=== PATIENT | female | born 1990 | race Caucasian/White ===

== ENCOUNTER 2023-12-01 15:30 | Outpatient (RCR) | payer BC, SELFPAY ==
--- NOTE | 2023-09-16 16:56 | OPREHPOC ---
Outpatient Therapy Plan of Care This is a Multidisciplinary Plan of Care that may contain components documented by all disciplines (PT, OT, and ST.) PT Problem 1 PT Problem #1 Knowledge Deficit PT Goal 1 Goal Pt to be IND with issued HEP Target Visit 8 PT Problem 2 PT Problem #2 Pain PT Goal 1 Goal Pt to report pain no greater 3/10 in the last week . Target Visit 8 PT Goal 2 Goal Pt to report 75% improvement in overall symptoms. Target Visit 8 PT Problem 3 PT Problem #3 Impaired Functional Mobil PT Goal 1 Goal Pt to demonstrate a functional lift and carry with 20lb from ground level Target Visit 8 PT Goal 2 Goal Pt to demonstrate neutral hip alignment at follow up Target Visit 8
--- NOTE | 2023-09-16 16:56 | PTOPEVAL1 ---
Assessment and note entered by Sofia Gordon, PT, DPT Evaluation Information Assessment Status Evaluation Diagnosis L hip pain Onset 2 months Subjective Information Pt states she thinks she is having sciatic nerve pain, reports L hip pain that radiates intermittently down the lateral side of her thigh. She reports pain when putting her shoes on and rolling over in bed. She will randomly get sharps in her hip but cannot find a pattern to these. Pt has a desk job, she works from home, sits on the couch to work. Reported Pain Level Pain Score 0: Self Report Assessment PT Clinical Summary Halley presents to therapy today for her initial evaluation with a diagnosis of L hip pain. Today she demonstrates a minor decrease in asha hip strength, piriformis tenderness, and pelvic asymmetries. She reports pain with supine rolling and with L hip ext rot with flexion, making it difficult to tie her shoes. Skilled therapy services are indicated to address the deficits noted above, to mange pain, to improve hip stability, and to return to PLOF. Plan of Care Interventions Electrical Stimulation,Gait Training,Hot Pack/Cold Pack,Manual Therapy,Neuro Re-education,Patient/ Caregiver Educati,Therapeutic Activities, Therapeutic Exercise PT Services Indicated Yes Treatment Frequency and 1x/wk for 6 visits Duration These treatments will address the objective and functional deficits as defined above. The patient will be advanced safely and appropriately in order for the patient to progress towards his/her prior level of function. Additional exercises will be introduced and as well as a comprehensive home exercise program upon discharge, if needed, ?to ensure carryover of functional gains achieved in the clinic. This treatment plan has been reviewed and agreement upon by the patient.
--- NOTE | 2023-09-21 11:29 | OTOPEVAL1 ---
Assessment and note entered by Jaguar Pizarro, OTNavid/Rashid, CHT Evaluation Information Assessment Status Evaluation Diagnosis (R) wrist pain Subjective Information Patient is right handed. She reports feeling onset of pain ~3 months ago. Reports pain and difficulties with gripping and lifting. 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 Tried to wear a wrist brace but this increased her pain. Reports no paresthesia in the hand. Reported Pain Level Pain Score 1: Self Report Additional Pain Score Comments Pain can become sharp/shooting when the wrist is stressed with resistance. Assessment OT Clinical Summary Patient referred to OT with right hand/wrist pain. Signs and symptoms are consistent with tenosynovitis of the 1st dorsal compartment. All nerve tension tests were negative. Skilled OT indicated to facilitate reduced pain and improved functional strength of the right hand/wrist. Plan of Care Interventions Therapeutic Exercise,Manual Therapy,Therapeutic Activities,Hot Pack/Cold Pack,Ultrasound,Paraffin OT Services Indicated Yes Treatment Frequency and 1x/week for 5 visits Duration These treatments will address the objective and functional deficits as defined above. The patient will be advanced safely and appropriately in order for the patient to progress towards his/her prior level of function. Additional exercises will be introduced and as well as a comprehensive home exercise program upon discharge, if needed, ?to ensure carryover of functional gains achieved in the clinic. This treatment plan has been reviewed and agreement upon by the patient.
--- NOTE | 2023-09-21 11:30 | OPREHPOC ---
Outpatient Therapy Plan of Care This is a Multidisciplinary Plan of Care that may contain components documented by all disciplines (PT, OT, and ST.) PT Problem 1 PT Problem #1 Knowledge Deficit PT Goal 1 Goal Pt to be IND with issued HEP Target Visit 8 PT Problem 2 PT Problem #2 Pain PT Goal 1 Goal Pt to report pain no greater 3/10 in the last week . Target Visit 8 PT Goal 2 Goal Pt to report 75% improvement in overall symptoms. Target Visit 8 PT Problem 3 PT Problem #3 Impaired Functional Mobil PT Goal 1 Goal Pt to demonstrate a functional lift and carry with 20lb from ground level Target Visit 8 PT Goal 2 Goal Pt to demonstrate neutral hip alignment at follow up Target Visit 8 OT Problem 1 OT Problem #1 Knowledge Deficit OT Goal 1 Goal 1. Patient to be independent with instructed materials. Target Visit 6 OT Problem 2 OT Problem #2 Pain OT Goal 1 Goal 1. Patient to report no pain in the hand/wrist during ADLs. Target Visit 6 OT Problem 3 OT Problem #3 Impaired Flexibility OT Goal 1 Goal 1. Patient to be able to complete passive wrist flexion and extension stretching without pain. Target Visit 6 OT Problem 4 OT Problem #4 Impaired Strength OT Goal 1 Goal 1. Patient to be able to complete wrist strengthening with 2 lb. free weight in all planes x20 without pain.
--- NOTE | 2023-10-08 11:22 | PCPTNOTE ---
Patient called & cancelled scheduled appointment this date due to being sick.
--- NOTE | 2023-11-05 15:21 | OTOPPROG ---
Assessment and note entered by Jaguar Pizarro, OTR/Rashid, CHT OT Progress Update 11/05/23 Diagnosis (R) wrist pain Subjective Information Patient reports progress since the start of care. Reports pain has reduced in intensity and in frequency. Reports intermittent pain when the thumb is used with resistance, such as when she is pinching something and plugging it into an outlet , turns the steering wheel. Reports no paresthesia in the hand. Reports no longer having aching pain at night and no longer having pain when pushing herself up in bed. Assessment OT Clinical Summary Patient referred to OT with right hand/wrist pain. She is progressing with reduced pain and reduced frequency of the pain. She is no longer reporting pain traveling up the wrist and is now able to bear weight through an extended wrist, such as when she pushes herself out of bed. She continues to have intermittent pain with thumb use. She reports these as sudden jolts of pain. All nerve tension tests are negative. Continued skilled OT indicated to continue to treat tendonitis of the thumb. Treatments to include continued use of modalities such as paraffin and US as well as therapeutic exercise and progressive strengthening. Plan of Care Interventions Therapeutic Exercise,Manual Therapy,Therapeutic Activities,Hot Pack/Cold Pack,Ultrasound,Paraffin OT Services Indicated Yes Treatment Frequency and 1x/week for 5 visits Duration These treatments will address the objective and functional deficits as defined above. The patient will be advanced safely and appropriately in order for the patient to progress towards his/her prior level of function. Additional exercises will be introduced and as well as a comprehensive home exercise program upon discharge, if needed, ?to ensure carryover of functional gains achieved in the clinic. This treatment plan has been reviewed and agreement upon by the patient.
--- NOTE | 2023-11-05 15:21 | OPREHPOC ---
Outpatient Therapy Plan of Care This is a Multidisciplinary Plan of Care that may contain components documented by all disciplines (PT, OT, and ST.) PT Problem 1 PT Problem #1 Knowledge Deficit PT Goal 1 Goal Pt to be IND with issued HEP Target Visit 8 PT Problem 2 PT Problem #2 Pain PT Goal 1 Goal Pt to report pain no greater 3/10 in the last week . Target Visit 8 PT Goal 2 Goal Pt to report 75% improvement in overall symptoms. Target Visit 8 PT Problem 3 PT Problem #3 Impaired Functional Mobil PT Goal 1 Goal Pt to demonstrate a functional lift and carry with 20lb from ground level Target Visit 8 PT Goal 2 Goal Pt to demonstrate neutral hip alignment at follow up Target Visit 8 OT Problem 1 OT Problem #1 Knowledge Deficit OT Goal 1 Goal 1. Patient to be independent with instructed materials. ---OT POC UPDATE 11/05/23--- 1. Met, continue as HEP is progressed Target Visit 11 OT Problem 2 OT Problem #2 Pain OT Goal 1 Goal 1. Patient to report no pain in the hand/wrist during ADLs. ---OT POC UPDATE 11/05/23--- 1. Inconsistently met, she continues to have pain and pain is decreasing, continue goal Target Visit 11 OT Problem 3 OT Problem #3 Impaired Flexibility OT Goal 1 Goal 1. Patient to be able to complete passive wrist flexion and extension stretching without pain. ---OT POC UPDATE 11/05/23--- 1. Met, D/C flexibility goal Target Visit 6 OT Problem 4 OT Problem #4 Impaired Strength OT Goal 1 Goal 1. Patient to be able to complete wrist strengthening with 2 lb. free weight in all planes x20 without pain. ---OT POC UPDATE 11/05/23--- 1. Met New Strength Goal 1.
--- NOTE | 2023-11-09 17:02 | OPREHPOC ---
Outpatient Therapy Plan of Care This is a Multidisciplinary Plan of Care that may contain components documented by all disciplines (PT, OT, and ST.) PT Problem 1 PT Problem #1 Knowledge Deficit PT Goal 1 Goal Pt to be IND with issued HEP Target Visit 8 Progress Met PT Problem 2 PT Problem #2 Pain PT Goal 1 Goal Pt to report pain no greater 3/10 in the last week . Target Visit 8 Progress Partially Met Comment Still incurring glute pain with hip rotation PT Goal 2 Goal Pt to report 75% improvement in overall symptoms. Target Visit 12 Progress Partially Met PT Problem 3 PT Problem #3 Impaired Functional Mobil PT Goal 1 Goal Pt to demonstrate a functional lift and carry with 20lb from ground level Target Visit 8 Progress Met PT Goal 2 Goal Pt to demonstrate neutral hip alignment at follow up Target Visit 8 Progress Met PT Problem 4 PT Problem #4 Impaired Functional Mobil PT Goal 1 Goal Patient will demonstrate ability to cross over left leg to right without pain for donning and doffing of shoes OT Problem 1 OT Problem #1 Knowledge Deficit OT Goal 1 Goal 1. Patient to be independent with instructed materials. ---OT POC UPDATE 11/05/23--- 1. Met, continue as HEP is progressed Target Visit 11 OT Problem 2 OT Problem #2 Pain OT Goal 1 Goal 1. Patient to report no pain in the hand/wrist during ADLs. ---OT POC UPDATE 11/05/23--- 1. Inconsistently met, she continues to have pain and pain is decreasing, continue goal Target Visit 11 OT Problem 3 OT Problem #3 Impaired Flexibility OT Goal 1 Goal 1. Patient to be able to complete passive wrist flexion and extension stretching without pain.
--- NOTE | 2023-11-09 17:02 | PTOPPROG ---
Assessment and note entered by Rm Barone, PT Evaluation Information Assessment Status Progress Diagnosis L hip pain Onset 2 months Subjective Information Pt states she thinks she is having sciatic nerve pain, reports L hip pain that radiates intermittently down the lateral side of her thigh. She reports pain when putting her shoes on and rolling over in bed. She will randomly get sharps in her hip but cannot find a pattern to these. Pt has a desk job, she works from home, sits on the couch to work. Assessment PT Clinical Summary Patient has seen objective progress in hip ROM and strength. Continues to show some lateral weakness and is having pain with functional crossing of leg which is consistent with acetabular impingement. Will continue to benefit from skilled therapy to address these deficits moving forward for return to functional mobility and ADL performance. Plan of Care Interventions Electrical Stimulation,Gait Training,Hot Pack/Cold Pack,Manual Therapy,Neuro Re-education,Patient/ Caregiver Education,Therapeutic Activities, Therapeutic Exercise PT Services Indicated Yes Treatment Frequency and 1x/wk for 4 visits Duration These treatments will address the objective and functional deficits as defined above. The patient will be advanced safely and appropriately in order for the patient to progress towards his/her prior level of function. Additional exercises will be introduced and as well as a comprehensive home exercise program upon discharge, if needed, ?to ensure carryover of functional gains achieved in the clinic. This treatment plan has been reviewed and agreement upon by the patient.
== END 2023-12-15 14:54 | disposition still patient (30) ==
LOC: ANHGOSHPT 15:30
PROVIDERS: PCP Internal Medicine; Visit Provider Clinical Nurse Specialist
DX: M79.641 Pain in right hand (principal); M25.552 Pain in left hip
CPT/HCPCS: 97018; 97035; 97110; 97140; 97161; 97166; 97530

== ENCOUNTER 2023-12-16 10:44 | Outpatient (RCR) | payer BC, SELFPAY ==
--- NOTE | 2023-12-16 11:29 | OTOPDC ---
Assessment and note entered by Jaguar Pizarro, OTR/L, CHT OT Discharge Notification 12/16/23 Assessment Status Discharge Diagnosis (R) wrist pain Subjective Information Patient reports making excellent progress with her wrist. She reports no longer feeling pain in the wrist and hasn't felt pain in 2+ weeks. She reports no longer experiencing wrist pain with use. Reporting no functional limitations at this time Reported Pain Level Pain Score 0: Self Report Assessment OT Clinical Summary Patient has made excellent progress with OT. She presents today reporting no longer experiencing pain and reporting no functional limitations. Strength is WNL now. No further skilled OT indicated at this time. Plan of Care OT Services Indicated No
--- NOTE | 2023-12-16 17:00 | PTOPDC ---
Assessment and note entered by Rm Barone, PT Evaluation Information Assessment Status Discharge Diagnosis Left Hip pain Onset August 2023 Subjective Information Reports that overall she is doing better. Reports that majority of her issues remain in occasional pain and difficulty crossing her leg, but that has improved with stretching. She reports that she feels comfortable with HEP to continue to address these deficits. Reported Pain Level Pain Score 0: Self Report Pain Score 0: Self Report Assessment PT Clinical Summary Patient has met all goals a this time for therapy. Suitable for HEP ad demonstrates compliance at this time.
== END 2023-12-17 12:29 | disposition home or self-care (01) ==
LOC: ANHPT 10:44
PROVIDERS: PCP Internal Medicine; Visit Provider Clinical Nurse Specialist
DX: M79.641 Pain in right hand (principal); M25.552 Pain in left hip
CPT/HCPCS: 97110; 97530

== ENCOUNTER 2024-05-24 13:48 | Outpatient (CLI) | payer BC, SELFPAY ==
[2024-05-24 19:41] LABS: Hematocrit 47.2 % (37.0-47.0); Hemoglobin 15.7 g/dL (12.0-15.0); Mean Corpuscular HGB Conc 33.3 g/dl (32-36); Mean Corpuscular Hemoglobin 29.8 pg (26-34); Mean Corpuscular Volume 89.6 fl (80-100); Platelet Count Result 368 k/mm3 (150-375); Red Blood Count 5.27 M/mm3 (4.2-5.4); Red Cell Distribution Width 13.2 % (11.5-14.5); White Blood Count 9.9 K/mm3 (4.5-10.0)
[2024-05-24 19:55] LABS: Alanine Aminotransferase 49 U/L (6-35); Alkaline Phosphatase 82 U/L (38-126); Anion Gap 11 mmol/L (4-12); Aspartate Amino Transferase 47 U/L (14-36); Bilirubin,Total 0.7 mg/dL (0.2-1.3); Blood Urea Nitrogen 14 mg/dL (7-17); Calcium 10.1 mg/dL (8.4-10.2); Carbon Dioxide 21 mmol/L (22-30); Chloride 106 mmol/L (98-107); Estimated Glomerular Filt Rate > 60; Glucose 77 mg/dL (65-110); Potassium 4.6 mmol/L (3.4-5.0); Sodium 138 mmol/L (137-145)
[2024-05-24 20:10] LABS: Free T4 Free Thyroxine 1.05 ng/mL (0.78-2.19); Vitamin D 25 Hydroxy 34.6 ng/mL
[2024-05-24 21:36] LABS: Hemoglobin A1C 5.4 % (<5.7)
== END 2024-05-24 13:49 | disposition home or self-care (01) ==
LOC: ANHGOSHLAB 13:51
PROVIDERS: PCP Internal Medicine; Visit Provider Nurse Practitioner
DX: E55.9 Vitamin D deficiency, unspecified (principal); D35.2 Benign neoplasm of pituitary gland; E22.1 Hyperprolactinemia; Z13.1 Encounter for screening for diabetes mellitus; Z13.0 Encounter for screening for diseases of the blood and blood-forming organs and certain disorders involving the immune mechanism; Z13.29 Encounter for screening for other suspected endocrine disorder
CPT/HCPCS: 36415; 80053; 82306; 82607; 83036; 84145; 84439; 84443; 85027

== ENCOUNTER 2024-07-03 10:40 | Outpatient (CLI) | payer BC, SELFPAY ==
--- NOTE | ~2024-07-03 | CT_ITS ---
EXAMINATION: CT sinus wo con DATE: 07/03/2024 10:52 INDICATION: Chronic ethmoidal sinusitis. TECHNIQUE: Computed tomography (CT) of the paranasal sinuses was performed without intravenous contra st. Iterative reconstruction technique was employed. The dose-length product was 308.32 mGy-cm. COMPARISON: None FINDINGS: The frontal sinuses are hypoplastic with moderate mucosal thickening. There is moderate muc osal thickening in the ethmoid sinuses. The sphenoid sinuses are clear. There is moderate mucosal thi ckening in the maxillary sinuses. There are Melanie cells bilaterally. There is simon bullosa involvi ng the bilateral middle turbinates. The right ostiomeatal unit is occluded at the tightest semilunari s. The left ostiomeatal unit is patent. There is mild rightward deviation of anterior superior nasal septum. IMPRESSION: 1. Mucosal thickening in the paranasal sinuses with occlusion of right ostiomeatal unit. Reviewed, dictated and finalized at location A. PARTS MANAGER IMPRESSION: 1. Mucosal thickening in the paranasal sinuses with occlusion of right ostiomea isa unit.
== END 2024-07-03 10:41 | disposition home or self-care (01) ==
LOC: MICIMG 10:41
PROVIDERS: PCP Internal Medicine; Visit Provider Otolaryngology
DX: J32.2 Chronic ethmoidal sinusitis (principal); J34.89 Other specified disorders of nose and nasal sinuses
CPT/HCPCS: 70486

== ENCOUNTER 2024-11-01 15:00 | Outpatient (CLI) | payer BC, SELFPAY ==
--- OUTSIDE RECORDS SUMMARY | 2024-11-01 17:03 | XMS_ITS | Clinical Summary ---
Author Organization [facility] Address [address] [place] [address] Care Team Providers Care Academic Support Director Name Role Phone Unavailable Primary Care Provider Unavailabl e Source Comments [facility],non-owned Affiliates and Associated Physician Practices is amultiple site organization consisting of ambulatory clinics and hospital sitesin [place], [place], [place] and [place]. This disclosure is being madepursuant to the Care Everywhere program and may not contain all information available regarding this patient. Last updated 18.[facility] Allergies No known active allergies Immunizations Immunization Administration Dates Next Due TDAP (7yrs+) 01/17/2019 Social History Tobacco Use Types Packs/Day Years Used Date Smoking Tobacco: Never Assessed Comments Unknown Sex and Gender Information Value Date Recorded Sex Assigned at Not on file Legal Sex Female 5:10 PM CDT Gender Identity Not on file Sexual Orientation Not on file Plan of Treatment Health Maintenance Due Date Last Done Comments PAP SMEAR 1992 HIV SCREENING 2007 HEPATITIS C SCREENING 03/29/2010 HEPATITIS B VACCINE (1 of 3 - 19+ 3-dose series) 2011 COVID-19 VACCINE (2023-2 5 season) 2024 DEPRESSION SCREENING 07/12/2024 INFLUENZA VACCINE (Season Ended) 2025 DTAP/TDAP/TD VACCINES (2 - T d or Tdap) 01/17/2029 01/17/2019 ZOSTER VACCINE (1 of 2) 2042 HIB VACCINE Aged Out No longer eligi ble based on patient's age to complete this topic HPV VACCINE Aged Out No longer eligi ble based on patient's age to complete this topic MENINGOCOCCAL (Group B) VACC INE SHARED DECISION-MAKING Aged Out No longer eligibl e based on patient's age to complete this topic MENINGOCOCCAL GROUPS A/C/Y/W VACCINE Aged Out No longer eligible b ased on patient's age to complete this topic PNEUMOCOCCAL VACCINE Aged Out No long er eligible based on patient's age to complete this topic Insurance
[2024-11-01 20:04] LABS: Basophils Percent Auto 0.4 % (0.2-1.2); Eosinophils Absolute Auto 0.2 K/mm3 (0-0.3); Hematocrit 44.8 % (37.0-47.0); Hemoglobin 14.8 g/dL (12.0-15.0); Immature Granulocyte Absolute 0.02 K/mm3 (0.00-0.031); Immature Granulocyte Percent A 0.2 % (0-0.5); Lymphocytes Absolute Auto 2.32 K/mm3 (0.9-3.2); Lymphocytes Percent Auto 21.8 % (18.3-44.2); Mean Corpuscular Hemoglobin 29.5 pg (26-34); Mean Corpuscular Volume 89.2 fl (80-100); Mean Platelet Volume 10.8 fl (7.4-10.4); Monocytes Absolute Auto 0.7 K/mm3 (0.1-0.6); Monocytes Percent Auto 6.6 % (2.6-8.5); Neutrophils Absolute Auto 7.3 K/mm3 (1.3-6.7); Platelet Count Result 392 k/mm3 (150-375); Red Blood Count 5.02 M/mm3 (4.2-5.4); Red Cell Distribution Width 13.1 % (11.5-14.5); White Blood Count 10.6 K/mm3 (4.5-10.0)
[2024-11-01 20:48] LABS: Alanine Aminotransferase 37 U/L (6-35); Albumin Level 4.8 g/dL (3.5-5.1); Alkaline Phosphatase 81 U/L (38-126); Anion Gap 11 mmol/L (4-12); Aspartate Amino Transferase 44 U/L (14-36); Bilirubin,Total 0.4 mg/dL (0.2-1.3); Blood Urea Nitrogen 14 mg/dL (7-17); Calcium 9.4 mg/dL (8.4-10.2); Carbon Dioxide 23 mmol/L (22-30); Chloride 105 mmol/L (98-107); Estimated Glomerular Filt Rate > 60; Glucose 114 mg/dL (65-110); Sodium 139 mmol/L (137-145)
[2024-11-01 21:17] LABS: Thyroid Stimulating Hormone 0.815 uIU/mL (0.465-4.680)
[2024-11-01 21:21] LABS: Vitamin D 25 Hydroxy 31.8 ng/mL
[2024-11-01 21:52] LABS: Folic Acid 12.7 ng/mL (2.76->20)
== END 2024-11-01 15:01 | disposition home or self-care (01) ==
LOC: ANHGOSHLAB 15:01
PROVIDERS: PCP Internal Medicine; Visit Provider Nurse Practitioner
DX: E55.9 Vitamin D deficiency, unspecified (principal); F41.9 Anxiety disorder, unspecified; G47.9 Sleep disorder, unspecified; R53.83 Other fatigue
CPT/HCPCS: 36415; 80053; 82306; 82607; 82746; 84443; 85025